=== PATIENT | female | born 1955 | race Caucasian/White ===

== ENCOUNTER → 2023-07-23 12:06 | Outpatient (REF) | payer MEDICARE, SELFPAY | LOC: RAD 12:06 | PROVIDERS: ATTENDING PHYSICIAN Neurological Surgery; FAMILY PHYSICIAN Family Medicine | DX: I67.1 Cerebral aneurysm, nonruptured (principal) | CPT/HCPCS: 71046 ==

== ENCOUNTER 2023-08-25 22:54 | Emergency (ER) | payer MEDICARE, SELFPAY ==
[2023-08-25 22:58] VITALS: BP 176/84
--- NOTE | 2023-08-26 00:37 | ED.GENMED ---
History of Present Illness
General
Chief Complaint: Skin Problem
Source: patient and spouse
Exam Limitations: none
Time Seen by Provider: 08/26/23 00:22
Nursing documentation reviewed up to this point in time: agreed with
Travel History
Have you had any contact with someone who has COVID-19?: No
Do you have any symptoms of coronavirus? Fever > 100 degrees, chills, cough, shortness of breath, sore throat, loss of taste or smell, muscle aches, or headache?: No
History of Present Illness
History of Present Illness:
This is a 67-year-old woman who presents with concern for recurrent bleeding at the left antecubital venipuncture site. She states she had blood work drawn at an outpatient center at 12 noon today and was feeling well but noted some bleeding
tonight prior to going to bed. With local pressure bleeding subsided. She admits to very minimal local pain but has had no swelling to the area, no weakness nor numbness.
She is chronically maintained on low-dose aspirin and Plavix.
No prior history of bleeding issues, denies frequent bruising.
Otherwise has been feeling well, no chest pain nor cough nor fever, no dizziness nor lightheadedness.
Past History
Past History
ED Past Medical History: HTN and Other (Cerebral aneurysm status post coils/stent)
ED Past Surgical History: Brain (Cerebral aneurysm coils/stent), and Gynecological (Hysterectomy)
Social History
Tobacco: Non-smoker
Alcohol: None
Personal:
Living: with family
Family History
Family History: Other (Noncontributory)
Phy Exam
Physical Exam
Physical Exam:
PHYSICAL EXAMINATION:
General: 67-year-old woman appears her stated age, bright and alert, pleasant, appears in no acute distress.
HEENT: Oral mucosa is moist. No rhinorrhea. Conjunctiva are dark pink. Anicteric.
HEART: Regular rate and rhythm.
LUNGS: Clear to auscultation. Respirations are easy nonlabored.
Neuro: alert and oriented. no focal neurological deficits
Psychiatric: well kept. interactive and cooperative
Musculoskeletal: [Left antecubital fossa has a pinpoint venipuncture site with focal tiny scab. There is no active bleeding, there is no soft tissue swelling, no hematoma, no erythema. Very minimal pinpoint focal tenderness
to palpation. There is full elbow range of motion without difficulty nor pain. Peripheral pulses are full and equal. Hand grasps are full and equal.
SKIN: Warm and dry, normal color. Good turgor. No ecchymosis no petechiae.]
Course
Vital Signs
Initial and Last Documented VS:
Initial Vital Signs
Temp Pulse Resp BP Pulse Ox
97.8 F 67 16 176/84 100
08/25/23 22:58 08/25/23 22:58 08/25/23 22:58 08/25/23 22:58 08/25/23 22:58
Last Documented Vital Signs
Temp Pulse Resp BP Pulse Ox
97.8 F 67 16 176/84 100
08/25/23 22:58 08/25/23 22:58 08/25/23 22:58 08/25/23 22:58 08/25/23 22:58
MDM/Problems Addressed
Differential Diagnosis Includes:
Patient presents with concern for acute, spontaneous bleeding from left antecubital fossa venipuncture site. Routine venipuncture from earlier today.
Bleeding subsided with local pressure prior to arrival with no recurrent since arrival to the ED.
There is no surrounding soft tissue swelling, no hematoma, no evidence of focal infection.
Nothing in history nor exam to suggest acute blood loss anemia.
Recommend supportive measures and to help prevent recurrent spontaneous bleeding left antecubital fossa venipuncture site has been dressed with bacitracin, several 2 x 2's and wrapped with Coban.
Recommend she leave the Coban and dressing in place tonight, can remove tomorrow upon waking and there after apply antibiotic ointment and a local Band-Aid over the next 2 to 3 days.
Cautioned to avoid picking at venipuncture scab.
If bleeding should recur recommend local firm pressure for at least 10 to 15 minutes and if bleeding persists continue to hold pressure and return to the ED for further evaluation.
*Pulse Oximetry
Patient hypoxic: no
*Critical Care Note
Total Time (30-74mins, 75-104mins- exclusive of procedures): Not Applicable
ED Attending Note
-
Portions of this chart may have been created with voice recognition software.� Occasional wrong word or��sound alike� substitutions may have occurred due to the inherent limitations of voice recognition software.
Discharge Plan
Departure
Patient Disposition: Home (Routine Discharge)
Date of Disposition: 08/26/23
Time of Disposition: 00:38
Patient with high blood pressure during this ER visit?: Yes
Condition: Good
Discharge Problem:
Bleeding from venipuncture site
Instructions: Bleeding Precautions, BLOOD PRESSURE
Referrals:
Hayder Hendricks MD [Family Provider] - As needed
Activity Restrictions/Additional Instructions:
Your left arm has been wrapped in Coban which you can remove in the morning. Thereafter apply antibiotic ointment such as bacitracin or Neosporin and a Band-Aid to venipuncture site.
Do not pick at the venipuncture scab, let it heal naturally.
If bleeding recurs, hold firm pressure over site for at least 10 to 15 minutes, this alone should stop the bleeding. If bleeding persists, continue to hold pressure and return to the ED for further evaluation.
Interventions
Interventions:
*Risk Screen - Suicide Last Done: 08/25/23 22:58
*Neglect/Abuse Screening Last Done: 08/25/23 22:58
*ED COVID-19 Vaccine History Last Done: 08/25/23 22:58
ED-Skin Assessment Last Done: 08/26/23 00:25
[2023-08-26 01:00] VITALS: BP 166/78
== END 2023-08-26 01:06 | disposition home or self-care (01) ==
LOC: EMR 22:54
PROVIDERS: EMERGENCY PHYSICIAN Emergency Medicine; FAMILY PHYSICIAN Family Medicine
DX: R58 Hemorrhage, not elsewhere classified (principal); I10 Essential (primary) hypertension; Z90.710 Acquired absence of both cervix and uterus
CPT/HCPCS: 99282

== ENCOUNTER 2024-04-13 19:00 | Emergency (ER) | payer MEDICARE, SELFPAY ==
[2024-04-13 19:01] VITALS: BP 188/107
[2024-04-13 20:10] VITALS: BMI 21.8
--- NOTE | 2024-04-13 20:15 | ED.GENMED ---
History of Present Illness
General
Chief Complaint: Post Operative Problem(s)
Source: patient
Exam Limitations: none
Time Seen by Provider: 04/13/24 19:41
History of Present Illness
History of Present Illness:
This is a 68 year old female that comes in with c/o bleeding after a Moh's procedure. States that she has a Mohs procedure done yesterday. States that there was basal cell skin cancer just below the left eye brow. . States that today she was to
change the bandage and she removed the dressing at 12 noon. States that it started to bleed and has been bleeding on and off since then. States that the dressing she has on know has been there since about 7pm. Denies any fever, chills, chest pain,
SOB, abd pain, nausea, vomiting, diarrhea, headache, dizziness.
Past History
Past History
ED Past Medical History: HTN and Other (Cerebral aneurysm status post coils/stent)
ED Past Surgical History: Brain (Cerebral aneurysm coils/stent X 2), (X 2) and Gynecological (Hysterectomy partial)
Social History
Tobacco: Non-smoker
Alcohol: None
Personal:
Living: with family
Family History
Family History: Other (Noncontributory)
Review of Systems
Review of Systems
All Other Systems: ROS reviewed and negative except as documented in HPI and ROS
Constitutional: Reports no symptoms; Denies fever or chills
EENT: Reports no symptoms
Respiratory: Denies cough or trouble breathing
Cardiac: Reports no symptoms; Denies chest pain
ABD/GI: Reports no symptoms; Denies abdominal pain, nausea, vomiting or diarrhea
: Reports no symptoms
Musculoskeletal: Reports no symptoms
Skin: Reports other (Bleeding from Mohs' procedure)
Neurological: Reports no symptoms; Denies dizzy or headache
Psychiatric: Reports no symptoms
Phy Exam
General Physical Exam
General Presentation: well appearing and no apparent distress
General age: appears stated age
General Skin: warm and dry
General Habitus: normal
General Mental: alert
General Hydration: appears well hydrated
ENT Exam
ENT Exam: TM's normal, pharynx normal and neck supple
Eye Exam
Eye Exam: EOMI
Cardiovascular Exam
Cardiovascular Exam: regular rate/rhythm, no edema and normal peripheral pulses
Skin Exam
Skin Exam: normal color, warm/dry, no petechia and other (Contusion noted around the left eye. Dressing in place and dry at this time. )
Psychiatric Exam
Psychiatric Exam: normal mood/affect
Course
Vital Signs
Initial and Last Documented VS:
Initial Vital Signs
Temp Pulse Resp BP Pulse Ox
98.7 F 75 14 188/107 98
04/13/24 19:01 04/13/24 19:01 04/13/24 19:01 04/13/24 19:01 04/13/24 19:01
Last Documented Vital Signs
Temp Pulse Resp BP Pulse Ox
98.7 F 70 18 175/88 97
04/13/24 19:01 04/13/24 21:43 04/13/24 21:43 04/13/24 21:43 04/13/24 21:43
MDM/Problems Addressed
Differential Diagnosis Includes:
Post procedureal bleeding.
MDM/Problems Addressed:
This is a 68 year old female that comes in with c/o bleeding from Moh's procedure yesterday after taking the dressing off today.
Explained to patient that the dressing at this time appears dry which she had applied at 7pm. Will hold off on changing the dressing at this time as explained to patient that every time she takes the dressing off she pulls off the clot. Will watch
patient for a short time.
Patient has not had any bleeding while here. Dressing remains in place. Will discharge patient home.
Chronic conditions affecting care:
ON Blood thinners
Acute Exacerbation and/or Progression of Chronic Illness:
NA
*Pulse Oximetry
Patient hypoxic: no
*EKG
Interpreted by ED Provider?: NA
Rate: EKG- N/A
*Billet Recorder Interpretation
Rate: Billet Recorder- N/A
*Critical Care Note
Total Time (30-74mins, 75-104mins- exclusive of procedures): Not Applicable
ED Attending Note
-
Portions of this chart may have been created with voice recognition software.� Occasional wrong word or��sound alike� substitutions may have occurred due to the inherent limitations of voice recognition software.
Discharge Plan
Departure
Patient Disposition: Home (Routine Discharge)
Date of Disposition: 04/13/24
Time of Disposition: 22:21
Patient with high blood pressure during this ER visit?: Yes
Condition: Good
Covid-19: Not Applicable
Discharge Problem:
Bleeding form Mohs procedure
Instructions: Bleeding After Surgery, BLOOD PRESSURE
Referrals:
Hayder Hendricks MD [Family Provider] -
Activity Restrictions/Additional Instructions:
As discussed, please keep this dressing in place until tomorrow. Then use the saline to wet the dressing before removing as not to pull the clot or the skin. Use the Vaseline gauze and the nonadaptic dressing. Follow up with the surgeon for further
evaluation. IF YOU HAVE ANY OTHER CONCERNS OR BLEEDING PLEASE RETURN TO THE EMERGENCY ROOM.
Interventions
Interventions:
*Risk Screen - Suicide Last Done: 04/13/24 20:10
*General Assessment Last Done: 04/13/24 21:53
*Neglect/Abuse Screening Last Done: 04/13/24 20:10
ED- Fall Risk Assessment Last Done: 04/13/24 20:09
*ED COVID-19 Vaccine History Last Done: 04/13/24 21:54
ED-Skin Assessment Last Done: 04/13/24 20:08
Discharge Date and Time
Print Language: BULGARIAN
[2024-04-13 21:43] VITALS: BP 175/88
== END 2024-04-13 22:30 | disposition home or self-care (01) ==
LOC: EMR 19:00
PROVIDERS: EMERGENCY PHYSICIAN Emergency Medicine; FAMILY PHYSICIAN Family Medicine
DX: L76.21 Postprocedural hemorrhage of skin and subcutaneous tissue following a dermatologic procedure (principal); I10 Essential (primary) hypertension; Z79.01 Long term (current) use of anticoagulants
CPT/HCPCS: 99282

== ENCOUNTER 2024-04-14 05:09 | Emergency (ER) | payer MEDICARE, SELFPAY ==
[2024-04-14 05:17] VITALS: BP 169/91
[2024-04-14 05:40] VITALS: BP 165/92; BMI 20.3
--- NOTE | 2024-04-14 06:32 | ED.GENMED ---
History of Present Illness
General
Chief Complaint: Post Operative Problem(s)
Source: patient and spouse
Exam Limitations: none
Time Seen by Provider: 04/14/24 06:04
History of Present Illness
History of Present Illness:
68-year-old female who presents with persistent bleeding at site of her recent Mohs surgery. She is on aspirin and Plavix. The patient states that yesterday she took the dressing off and the bottom dressing just pulled a little bit and opened the
wound a little bit. Since then it has been oozing. She did present last night but because the dressings remain dry after watching it they decided to do nothing. No pain. No obvious drainage.
Past History
Past History
ED Past Medical History: HTN and Other (Cerebral aneurysm status post coils/stent)
ED Past Surgical History: Brain (Cerebral aneurysm coils/stent X 2), (X 2) and Gynecological (Hysterectomy partial)
Social History
Tobacco: Non-smoker
Alcohol: None
Personal:
Living: with family
Family History
Family History: Other (Noncontributory)
Phy Exam
Physical Exam
Physical Exam:
CONSTITUTIONAL Vital signs reviewed, Patient alert and oriented to person, place and time. Well-appearing
HEAD atraumatic, normocephalic.
EYES left upper lid with ecchymosis. There is a wound noted that is well-approximated with a small amount of oozing at the caudad portion of the wound. No drainage. extraocular muscles intact, Conjunctiva normal, Sclera normal.
NECK normal range of motion, Trachea midline, no jugular venous distention.
RESP no respiratory distress
BACK No obvious deformities
UPPER EXTREMITY Gross Range of motion normal, gross motor strength normal
LOWER EXTREMITY Gross range of motion normal, Gross motor strength normal
NEURO Speech normal, No focal motor deficits include, [place] coma scale 15, Memory normal, Cranial Nerves intact to screening exam.
SKIN Skin warm, dry, and normal in color.
PSYCHIATRIC Patient oriented to person place and time, Normal affect.
Course
Orders/Labs/Results
Orders:
Orders
04/14/24 06:20
Tranexamic Acid 500 mg TOPICAL NOW STA
04/14/24 07:49
Sodium Bicarbonate 50 meq .ROUTE .STK-MED ONE
Vital Signs
Initial and Last Documented VS:
Initial Vital Signs
Temp Pulse Resp BP Pulse Ox
98.3 F 69 20 169/91 100
04/14/24 05:17 04/14/24 05:17 04/14/24 05:17 04/14/24 05:17 04/14/24 05:17
Last Documented Vital Signs
Temp Pulse Resp BP Pulse Ox
97.7 F 72 16 165/92 99
04/14/24 05:40 04/14/24 06:00 04/14/24 06:00 04/14/24 05:40 04/14/24 05:40
MDM/Problems Addressed
MDM/Problems Addressed:
Postoperative bleeding
*Pulse Oximetry
Patient hypoxic: no
*Critical Care Note
Total Time (30-74mins, 75-104mins- exclusive of procedures): Not Applicable
Data Reviewed
Source: patient and spouse
Prescriptions/Medications Considered But Not Given:
Considered antibiotics but no indication at this time as the wound does appear clean
Patient Management
Escalation/DeEscalation of care consider admission/obs:
2 hemostatic sutures placed and achieved hemostasis. Okay for outpatient follow-up with dermatology
ED Attending Note
-
Portions of this chart may have been created with voice recognition software.� Occasional wrong word or��sound alike� substitutions may have occurred due to the inherent limitations of voice recognition software.
Discharge Plan
Departure
Patient Disposition: Home (Routine Discharge)
Date of Disposition: 04/14/24
Time of Disposition: 08:41
Patient with high blood pressure during this ER visit?: Yes
Discharge Problem:
Postoperative bleeding from incision
Instructions: Wound Care (DC), BLOOD PRESSURE
Referrals:
Hayder Hendricks MD [Family Provider] -
Activity Restrictions/Additional Instructions:
Please keep dressing intact until seen by your server manager. Return immediately for bleeding, fevers, swelling or any other concerns.
Interventions
Interventions:
*Risk Screen - Suicide Last Done: 04/14/24 06:00
*General Assessment Last Done: 04/14/24 06:00
*Neglect/Abuse Screening Last Done: 04/14/24 06:00
ED- Fall Risk Assessment Last Done: 04/14/24 06:00
ED-Skin Assessment Last Done: 04/14/24 06:00
Discharge Date and Time
Print Language: [place] KONGER
[2024-04-14] MEDS: TRANEXAMIC ACID 500 MG TOPICAL (07:01)
[2024-04-14 07:15] VITALS: BP 124/66
[2024-04-14 09:00] VITALS: BP 130/71
== END 2024-04-14 09:17 | disposition home or self-care (01) ==
LOC: EMR 05:09
PROVIDERS: EMERGENCY PHYSICIAN Emergency Medicine; FAMILY PHYSICIAN Family Medicine
DX: L76.22 Postprocedural hemorrhage of skin and subcutaneous tissue following other procedure (principal); I10 Essential (primary) hypertension; Z79.02 Long term (current) use of antithrombotics/antiplatelets; Z79.82 Long term (current) use of aspirin
CPT/HCPCS: 99282

== ENCOUNTER → 2024-08-29 12:15 | Outpatient (REF) | payer MEDICARE, SELFPAY | LOC: HWRAD 12:15 | PROVIDERS: ATTENDING PHYSICIAN Family Medicine; FAMILY PHYSICIAN Family Medicine | DX: R19.09 Other intra-abdominal and pelvic swelling, mass and lump (principal); R22.42 Localized swelling, mass and lump, left lower limb; R22.41 Localized swelling, mass and lump, right lower limb | CPT/HCPCS: 76882 ==

== ENCOUNTER → 2024-09-25 11:12 | Outpatient (REF) | payer MEDICARE, SELFPAY | LOC: HWRAD 11:12 | PROVIDERS: ATTENDING PHYSICIAN Neurological Surgery; FAMILY PHYSICIAN Family Medicine | DX: I67.1 Cerebral aneurysm, nonruptured (principal) | CPT/HCPCS: 71046 ==

== ENCOUNTER → 2024-11-09 07:27 | Outpatient (REF) | payer MEDICARE, SELFPAY | LOC: HWRAD 07:27 | PROVIDERS: ATTENDING PHYSICIAN Internal Medicine Gastroenterology; FAMILY PHYSICIAN Family Medicine | DX: K30 Functional dyspepsia (principal); R10.12 Left upper quadrant pain; R10.11 Right upper quadrant pain | CPT/HCPCS: 76700 ==

== ENCOUNTER 2025-05-10 21:56 | Emergency (ER) | payer MEDICARE, SELFPAY ==
[2025-05-10 22:02] VITALS: BP 162/93
--- NOTE | 2025-05-10 23:42 | ED.GENMED ---
History of Present Illness
General
Chief Complaint: Skin Problem
Source: patient and spouse
Exam Limitations: none
Time Seen by Provider: 05/10/25 23:29
Nursing documentation reviewed up to this point in time: agreed with
History of Present Illness
History of Present Illness:
69-year-old female with history as noted presents to the ER for evaluation of rash. Patient reports onset of symptoms about a week ago and they have been constant since that time. She reports rash started on the abdomen and spread to the
extremities, chest, back. It has spared the face, palms, soles. No significant mucous membrane involvement. Rash is pruritic but not painful. She does note that she was recently on a prolonged course of prednisone for recent ear issue; rash
started shortly after tapering down off of the prednisone. She did see her production solderer for the rash yesterday (Dr. Carrasco) and had a biopsy done which is pending. She was told that it could potentially be eczema versus fungal rash. Could not
manage with the pruritus tonight which prompted ER visit.
Past History
Past History
ED Past Medical History: HTN and Other (Cerebral aneurysm status post coils/stent)
ED Past Surgical History: Brain (Cerebral aneurysm coils/stent X 2), (X 2) and Gynecological (Hysterectomy partial)
Social History
Tobacco: Non-smoker
Alcohol: None
Personal:
Living: with family
Family History
Family History: Other (Noncontributory)
Review of Systems
Review of Systems
All Other Systems: ROS reviewed and negative except as documented in HPI and ROS
Constitutional: Denies fever or chills
EENT: Denies sore throat
Musculoskeletal: Denies joint swelling
Skin: Reports itching and rash
Phy Exam
Physical Exam
Physical Exam:
General: Well appearing and non-toxic
HEENT: protecting airway, conjunctiva normal, mucous membranes moist with no cracking of the lips or significant oral lesions
Neck: appears supple
CV: No evidence of cyanosis
Resp: No accessory muscle use
Abd: Non-distended
Extremities: No deformities
Neuro: Alert
Psych: Normal affect
Skin: Patient has faintly erythematous, raised, blanching lattice rash on the abdomen with faint papules scattered on the extremities mostly inner thighs and dorsal surface of the arms; rash spares feet and palms
Scores
Heart Failure Risk
Heart Failure Risk Score: Not Applicable
Heart Score for Chest Pain Patients
STEMI patient?: Not applicable
Withdrawal Assessment of Alcohol
Withdrawal Assessment Completed?: Not applicable
Course
Orders/Labs/Results
Orders:
Orders
05/10/25 23:42
Diphenhydramine [Benadryl] 25 mg PO NOW STA
05/10/25 23:45
MethylPREDNISolone [Medrol] 16 mg PO NOW STA
Vital Signs
Initial and Last Documented VS:
Initial Vital Signs
Temp Pulse Resp BP Pulse Ox
36.3 C 64 18 162/93 100
05/10/25 22:02 05/10/25 22:02 05/10/25 22:02 05/10/25 22:02 05/10/25 22:02
Last Documented Vital Signs
Temp Pulse Resp BP Pulse Ox
36.3 C 64 18 162/93 100
05/10/25 22:02 05/10/25 22:02 05/10/25 22:02 05/10/25 22:02 05/10/25 23:43
MDM/Problems Addressed
Differential Diagnosis Includes:
Eczema, fungal rash, contact dermatitis, viral rash
MDM/Problems Addressed:
69-year-old female presents with pruritic rash. Saw production solderer yesterday had biopsy which is pending. Could not manage the itching tonight which prompted ER referral. No red flags to suggest emergent cause for rash. Could be eczema, viral
rash, fungal somewhat less likely given diffuse distribution. Already has biopsy pending, no indication for further testing in the ER tonight. Will trial Medrol pack, antihistamines and discharge with dermatology follow-up.
*Pulse Oximetry
SaO2: 100
Oxygen Mode of Delivery: Room air
Patient hypoxic: no (100%)
*Critical Care Note
Total Time (30-74mins, 75-104mins- exclusive of procedures): Not Applicable
Data Reviewed
Source: patient and spouse
ED Attending Note
-
Portions of this chart may have been created with voice recognition software.� Occasional wrong word or��sound alike� substitutions may have occurred due to the inherent limitations of voice recognition software.
Discharge Plan
Departure
Patient Disposition: Home (Routine Discharge)
Date of Disposition: 05/10/25
Time of Disposition: 23:45
Patient with high blood pressure during this ER visit?: Yes
Discharge Problem:
Rash
Instructions: Skin Rash (DC)
Prescriptions:
New
methylprednisolone [Medrol (Marco)] 4 mg tablets,dose pack
See Rx Instructions .ROUTE .COMPLEX Qty: 21 0RF
Rx Instructions:
for 6 days
Referrals:
Hayder Hendricks MD [Family Provider, Family Practice]
Mere Carrasco MD [Consulting Staff, Dermatology] - Keep scheduled appt
Activity Restrictions/Additional Instructions:
Thank you for visiting the Emergency Department at [facility].
1. Please schedule a follow up appointment as directed. Call first thing tomorrow morning to make an appointment.
2. If indicated, please take your medications as instructed and indicated on discharge paperwork.
3. If any of your symptoms do not improve, or persist, or become more severe within 6-12 hours, please return to the emergency department for further care.
4. Please return to the emergency department if you develop a headache, neck pain/stiffness, fever greater than 100.4F, chest pain, shortness of breath, persistent nausea, vomiting, slurred speech, difficulty walking, numbness/tingling, weakness,
signs of infection or any other symptoms that are worrisome to you.
Please call [phone] if you have any questions.
Interventions
Interventions:
*Risk Screen - Suicide Last Done: 05/10/25 22:02
*Neglect/Abuse Screening Last Done: 05/10/25 22:02
[facility] Risk Assessment Tool Last Done: 05/10/25 22:42
ED-Skin Assessment Last Done: 05/10/25 22:43
Discharge Date and Time
Print Language: KITTITIAN
[2025-05-10] MEDS: MEDROL 16 MG PO (23:57)
[2025-05-10] MEDS: BENADRYL 25 MG PO (23:59)
== END 2025-05-11 00:06 | disposition home or self-care (01) ==
LOC: EMR 21:56
PROVIDERS: EMERGENCY PHYSICIAN Emergency Medicine; FAMILY PHYSICIAN Family Medicine
DX: R21 Rash and other nonspecific skin eruption (principal); L29.9 Pruritus, unspecified; I10 Essential (primary) hypertension
CPT/HCPCS: 99283